=== PATIENT | female | born 2000 | race Caucasian/White ===

== ENCOUNTER 2025-03-29 06:49 | Outpatient (REF) | payer OTHER, SELFPAY ==
--- NOTE | ~2025-03-29 | US_ITS ---
CLINICAL HISTORY: ABD PAIN Exam: 1. US abdomen complete 2. Duplex ultrasound of the portal vein Comparison: None Findings: The visualized pancreas is normal. The aorta and inferior vena cava are normal caliber. The liver is normal in size and echotexture. There is no intrahepatic bile duct dilatation. The common duct is 2.8 mm in diameter. The gallbladder is normal. There is no sonographic Roberts sign. The main portal vein is antegrade. The right kidney is 10.6 cm in length. The left kidney is 10.9 cm in length. The spleen is normal. No ascites. Duplex evaluation of the portal vein was performed. This included real-time grayscale, color spectral Doppler analysis, and color Doppler flow imaging. Portal vein is patent with hepatopetal flow. IMPRESSION: 1. Normal complete abdominal ultrasound. This document has been electronically signed by: Satya Blevins MD on 03/30/2025 10:09:43
--- OUTSIDE RECORDS SUMMARY | 2025-03-29 06:52 | XMS_ITS | Encounter Summary ---
Author Organization [employer] [facility] [employer] Address [address] [place] [address] Care Team Providers Care [facility] Worker Name Role Phone Osito Caldwell MD Primary Care Provider [phone] Reason for Visit * Reason Comments Med Refill Encounter Details Date Type Department Care Team (Late st Contact Info) Description 01/22/2025 Refill [facility] [address] [place] [address] Osito Caldwell MD [address] [place] [address] Endocrine disorder Social History Tobacco Use Types Packs/Day Years Used Date Smoking Tobacco: Never Assessed Comments Unknown Sex and Gender Information Value Date Recorded Sex Assigned at Choose not to disclose 3:24 PM EDT Legal Sex Female 3:24 PM EDT Gender Identity Choose not to disclose 3:24 PM EDT Sexual Orientation Choose not to disclose 2021 3:24 PM EDT documented as of this encounter Plan of Treatment Not on file documented as of this encounter Visit Diagnoses Diagnosis Endocrine disorder Unspecified endocrine disorder documented in this encounter Care Teams [facility] Worker Relationship Specialty Start Date End Date Osito Caldwell MD [address] [place] [address] PCP - General Family Medicine 11/26/21 documented as of this encounter
--- OUTSIDE RECORDS SUMMARY | 2025-03-29 06:52 | XMS_ITS | Encounter Summary ---
Author Organization [employer] Address [address] [place] [id number] Care Team Providers Care Camp Director Name Role Phone Osito Caldwell MD Primary Care Provider [phone] Reason for Visit * Reason Comments Med Refill Encounter Details Date Type Department Care Team (Late st Contact Info) Description 09/03/2023 Refill [facility] [address] [place] [address] Osito Caldwell MD [address] [place] [address] Obsessive-compulsive disorder, unspecified type Social History Tobacco Use Types Packs/Day Years [...] as of this encounter Visit Diagnoses Diagnosis Obsessive-compulsive disorder, unspecified type documented in this encounter Care Teams Camp Director Relationship Specialty Start Date End Date Osito Caldwell MD [address] [place] [address] PCP - General Family Medicine 11/26/21 documented as of this encounter
--- OUTSIDE RECORDS SUMMARY | 2025-03-29 06:53 | XMS_ITS | Clinical Summary ---
Author Organization [employer] Address [address] [place] [address] [address] [place] [address] Care Team Providers Care Fashion Journalist Name Role Phone Osito Caldwell MD Primary Care Provider [phone] Allergies Active Allergy Reactions Criticality Noted Date Comments Penicillins Rash Low 03/23/2025 Medications B-D LUER-MO SYRINGE 20G X 1 1 ML miscIndications :Hormone disorder USE 1 SYRINGE DIRECTED ONCE A WEEK 5 each 10 12/11/19 23 Active lamoTRIgine (LaMICtal) 150 MG tabletIndicatio ns:Obsessive-co mpulsive disorder, unspecified type TAKE 1 TABLET BY MOUTH EVERY MORNING 30 tablet 2 06/02/20 23 Active BD Disp [place] 20G X 1 misc DIRECTED 5 each 4 01/02/20 24 Active BD Disp Needle 23G X 1 miscIndications :Endocrine disorder FOR USE WITH INTO THE MUSCLE INJECTION 12 each 4 02/13/20 24 Active B-D HYPODERMIC NEEDLE 21GX1 21G X 1 misc DIRECTED 5 each 3 05/30/20 24 Active B-D SYRINGE LUER-MO 1CC 1 ML misc USE 1 SYRINGE DIRECTED ONCE A WEEK 5 each 8 02/13/20 25 Active levothyroxine (Synthroid, Levoxyl) 50 MCG tabletIndicatio ns:Hypothyroidi sm, unspecified type TAKE 1 TABLET BY MOUTH EVERY DAY 90 tablet 3 03/07/20 25 Active cloNIDine (Catapres) 0.1 MG tabletIndicatio ns:Depression, unspecified depression type TAKE 1 TABLET BY MOUTH THREE TIMES DAILY 90 tablet 3 03/07/20 25 Active lamoTRIgine (LaMICtal) 200 MG tabletIndicatio ns:Depression, unspecified depression type TAKE 1 TABLET BY MOUTH EVERY NIGHT 30 tablet 3 03/07/20 25 Active testosterone cypionate (Depo-Testoster one) 200 MG/ML injectionIndica tions:Endocrine disorder INJECT 0.25ML (50MG) INTO THE MUSCLE EVERY WEEK 2 mL 03/19/20 25 Active sertraline (Zoloft) 100 MG tabletIndicatio ns:Depression, unspecified depression type Take 2 tablets (200 mg) by mouth Once per day. 180 tablet 1 03/23/20 25 Active levothyroxine (Synthroid, Levoxyl) 50 MCG tabletIndicatio ns:Hypothyroidi sm, unspecified type TAKE 1 TABLET BY MOUTH EVERY DAY 90 tablet 3 11/01/20 23 025 Discontinued sertraline (Zoloft) 100 MG tabletIndicatio ns:Depression, unspecified depression type TAKE 2 TABLETS BY MOUTH ONCE A DAY 60 tablet 2 09/29/20 24 025 Discontinued lamoTRIgine (LaMICtal) 200 MG tabletIndicatio ns:Depression, unspecified depression type TAKE 1 TABLET BY MOUTH EVERY NIGHT 30 tablet 2 11/07/20 24 025 Discontinued cloNIDine (Catapres) 0.1 MG tabletIndicatio ns:Depression, unspecified depression type TAKE 1 TABLET BY MOUTH THREE TIMES DAILY 90 tablet 1 01/05/20 25 025 Discontinued testosterone cypionate (Depo-Testoster one) 200 MG/ML injectionIndica tions:Endocrine disorder INJECT 0.25ML (50MG) INTO THE MUSCLE EVERY WEEK 2 mL 01/17/20 25 025 Discontinued sertraline (Zoloft) 100 MG tabletIndicatio ns:Depression, unspecified depression type TAKE 2 TABLETS BY MOUTH ONCE A DAY 60 tablet 1 03/15/20 25 025 Discontinued(Re order (will not trigger notification to Pharmacy)) Active Problems Problem Noted Date Diagnosed Date Hormone disorder 03/23/2025 Assessment & Plan (03/23/2025 3:11 PM EDT): Happy with the current testosterone dosing. Will check levels. Orders are in Encounters Date Type Department Care Team Description 03/23/2025 3:00 PM EDT Telemedicine [facility] [address] [place] [id number] Osito Caldwell MD Hormone disorder (Primary Dx); Depression, unspecified depression type 03/23/2025 Travel 03/21/2025 Telephone [facility] [address] [address] Osito Caldwell MD Lab Orders; Appointment 03/19/2025 Refill [facility] [address] [address] Osito Caldwell MD Endocrine disorder 03/15/2025 Refill [facility] [address] [address] Osito Caldwell MD Depression, unspecified depression type 03/07/2025 Refill [facility] [address] [address] Osito Caldwell MD Depression, unspecified depression type 03/06/2025 Refill [facility] [address] [address] Osito Caldwell MD Hypothyroidism, unspecified type 02/12/[address] [address] Osito Caldwell MD 01/22/[address] [address] Osito Caldwell MD Endocrine disorder 01/17/[address] [address] Osito Caldwell MD Prior Authorization ([place] approved for test inj Approved today by [employer] 2017/CaseId:[id number];St atus:Approved;Review Type:Prior Auth;Coverage Start Date:12/18/2024;Coverag e End Date:01/17/2026;/Effect cullen Date: 12/17/2024/Authorization Expiration Date: 01/16/2026/) 01/17/2025 Orders Only [facility] [address] [address] Osito Caldwell MD Hormone disorder (Primary Dx); Hypothyroidism, unspecified type 01/14/2025 Refill [facility] [address] [address] Osito Caldwell MD Endocrine disorder 01/05/2025 Refill [facility] [address] [place] [address] Osito Caldwell MD Depression, unspecified depression type from Last 3 Months Social History Tobacco Use Types Packs/Day Years Used Date Smoking Tobacco: Never Assessed Depression Answer Date Recorded Patient Health Questionnaire-9 Score 13 03/22/2025 Patient Health Questionnaire-9 Score 13 03/22/2025 Last PHQ-9: Questionnaire Data 2 0 03/22/2025 Depression Answer Date Recorded Patient Health Questionnaire-2 Score 3 03/22/2025 Comments Unknown Sex and Gender Information Value Date Recorded Sex Assigned at Choose not to disclose 3:24 PM EDT Legal Sex Female 3:24 PM EDT Gender Identity Choose not to disclose 3:24 PM EDT Sexual Orientation Choose not to disclose 2021 3:24 PM EDT Last Filed Vital Signs Vital Sign Reading Time Taken Comments Blood Pressure 100/70 06/13/2020 7:47 AM EDT Pulse - - Temperature - - Respiratory Rate - - Oxygen Saturation - - Inhaled Oxygen Concentration - - Weight 59.4 kg (131 lb) 06/13/2020 7:47 AM EDT Height - - Body Mass Index - - Plan of Treatment Health Maintenance Due Date Last Done Comments HIV Screening 1998 SDOH Screening 1998 Alcohol/Substance Use Screening 2010 Tobacco Screening 2010 Family Planning (PISQ) 2013 HPV Vaccines (1 - 3-dose series) 2013 Hepatitis C Screening 2016 Hepatitis B Vaccines (1 of 3 - 19+ 3-dose series) 2017 Pap Smear 06/16/2023 06/16/2020 COVID-19 Vaccine (2023- season) 2024 09/05/2023, 08/30/2022, 11/09/2021, Additional history exists Depression Screening 03/22/2026 03/22/2025, 03/22/20 25 DTaP/Tdap/Td Vaccines (2 - Td or Tdap) 01/17/2035 01/17/2025 Zoster Vaccines (1 of 2) 2048 RSV Patients and Patients Aged 60 years or older (1 - 1-dose 75+ series) 2073 Influenza Vaccine Completed 08/10/2024, , 08/30/2022 HIB Vaccines Aged Out No longer eligi ble based on patient's age to complete this topic Hepatitis A Vaccines Aged Out No long er eligible based on patient's age to complete this topic IPV Vaccines Aged Out No longer eligi ble based on patient's age to complete this topic Meningococcal Vaccine Aged Out No xuan shaunna eligible based on patient's age to complete this topic Pneumococcal Vaccine: Pediatrics (0 to 5 Years) and At-Risk Patients (6 to 49) Years) Aged Out No longer eligible based on patient's age to complete this topic RSV under 20 months Aged Out No longe r eligible based on patient's age to complete this topic Rotavirus Vaccines Aged Out No longer eligible based on patient's age to complete this topic Procedures Procedure Name Priority Date/Time Associated Diagnosis Comments [facility] RESULT Routine 06/16/2020 2:00 PM EDT from Last 3 Months or Most Recently Relevant to Health Maintenance Results * [facility] RESULT (06/16/2020 2:00 PM EDT) Pap smear, previous NONE GIVEN [facility] Pap smear, previous biopsy NONE GIVEN [facility] vaginal Pap smear results Negative for intraepithelial lesion or malignancy. [facility] pap smear, clinical information This Pap test has been evaluated with computer assisted technology. [facility] 06/16/2020 2:00 PM EDT us Gabriella Mazariegos MD HISTORICAL/NON ORDERABLE LABS Final Result [facility] [address] from Last 3 Months or Most Recently Relevant to Health Maintenance [facility] Care Teams Fashion Journalist Relationship Specialty Start Date End Date Osito Caldwell MD [address] [place] [address] PCP - General Family Medicine 11/26/21
== END 2025-03-29 06:50 | disposition home or self-care (01) ==
LOC: HO.UMASIMG 06:49
PROVIDERS: Visit Provider Registered Nurse
DX: R10.9 Unspecified abdominal pain (principal)
CPT/HCPCS: 76700

== ENCOUNTER → 2025-03-29 08:00 | Outpatient (BNV) | payer OTHER, SELFPAY | PROVIDERS: Visit Provider Radiology Diagnostic Radiology | DX: R10.9 Unspecified abdominal pain (principal) | CPT/HCPCS: 76700 ==